=== PATIENT | male | born 1955 | race African-American/Black ===

== ENCOUNTER 2023-12-23 14:01 | Inpatient (IN) | payer MEDICARE, OTHER ==
--- NOTE | 2023-12-23 14:20 | ED ---
General Adult HPI - General Chief complaint: Chest Pain Stated complaint: chest pain Time Seen by Provider: 12/23/23 14:05 Source: patient, EMS, RN notes reviewed, old records reviewed Mode of arrival: EMS - History of Present Illness Initial comments: This is a 68-year-old male with a past medical history significant for coronary artery disease and 3 stent placements, patient also has high blood pressure high cholesterol smokes and states he did cocaine a week ago. Patient comes in today because he has chest pain this morning with shortness of breath. Patient states the chest pain after about 20 minutes to half an hour went away. Patient states currently chest pain-free. Patient denies any diaphoretic episode. Patient denies any nausea. Patient has no complaints at this time. Patient [place] any fever chills or cough. - Related Data Home Medications Medication Instructions Recorded Confirmed Aspirin EC [Ecotrin Low Dose] 81 mg PO DAILY 12/23/23 12/23/23 Budesonide/Glycopyr/Formoterol 2 puff INHALATION RT-BID 12/23/23 12/23/23 [Breztri Aerosphere Inhaler] Clopidogrel [Plavix] 75 mg PO DAILY 12/23/23 12/23/23 Famotidine [Pepcid] 20 mg PO DAILY 12/23/23 12/23/23 Fluticasone Nasal [place] [Flonase 1 spray EA NOSTRIL DAILY 12/23/23 12/23/23 Nasal [place]] Metoprolol Tartrate [Lopressor] 25 mg PO BID 12/23/23 12/23/23 Tamsulosin [Flomax] 0.4 mg PO BID 12/23/23 12/23/23 Allergies Allergy/AdvReac Type Severity Reaction Status Date / Time No Known Allergies Allergy Verified 12/23/23 16:04 Review of Systems ROS Statement: Those systems with pertinent positive or pertinent negative responses have been documented in the HPI. ROS Other: All systems not noted in ROS Statement are negative. Past Medical History Past Medical History: COPD, Myocardial Infarction ([place]) History of Any Multi-Drug Resistant Organisms: None Reported Additional Past Surgical History / Comment(s): cardiac stent x3 Past Psychological History: No Psychological Hx Reported Smoking Status: Current every day smoker Past Alcohol Use History: None Reported Past Drug Use History: Cocaine General Exam - General Exam Comments Initial Comments: GENERAL: Patient is well-developed and well-nourished. Patient is nontoxic and well- hydrated and is in no acute distress. ENT: Neck is soft and supple. No significant lymphadenopathy is noted. Oropharynx is clear. Moist mucous membranes. Neck has full range of motion without eliciting any pain. EYES: The sclera were anicteric and conjunctiva were pink and moist. Extraocular movements were intact and pupils were equal round and reactive to light. Eyelids were unremarkable. PULMONARY: Unlabored respirations. Good breath sounds bilaterally. No audible rales rhonchi or wheezing was noted. CARDIOVASCULAR: There is a regular rate and rhythm without any murmurs gallops or rubs. ABDOMEN: Soft and nontender with normal bowel sounds. SKIN: Skin is clear with no lesions or rashes and otherwise unremarkable. NEUROLOGIC: Patient is alert and oriented x3. Cranial nerves II through XII are grossly intact. Motor and sensory are also intact. Normal speech, volume and content. Symmetrical smile. MUSCULOSKELETAL: Normal extremities with adequate strength and full range of motion. No lower extremity swelling or edema. No calf tenderness. LYMPHATICS: No significant lymphadenopathy is noted PSYCHIATRIC: Normal psychiatric evaluation. Course Vital Signs 12/23/23 14:05 Pulse Rate 88 Respiratory 16 Rate Blood Pressure 131/79 O2 Sat by Pulse 95 Oximetry Medical Decision Making - Medical Decision Making EKG is interpreted by myself but EKG shows a sinus rhythm at 79 bpm parables 150 QRS 154 QT interval is 427 QTc is 462. Patient's EKG shows a right bundle branch block. There is no ST segment elevation. Was pt. sent in by a medical professional or institution (, PA, BINDERY ASSISTANT, urgent care, hospital, or care home...) When possible be specific @ -No Did you speak to anyone other than the patient for history (EMS, parent, family, police, friend...)? What history was obtained from this source @ -No Did you review nursing and triage notes (agree or disagree)? Why? @ -I reviewed and agree with nursing and triage notes Were old charts reviewed (outside hosp., previous admission, EMS record, old EKG, old radiological studies, urgent care reports/EKG's, care home records)? Report findings @ -I reviewed prior admission charts on this patient and his troponin was elev ated compared to his last inpatient troponin. Differential Diagnosis (chest pain, altered mental status, abdominal pain women, abdominal pain men, vaginal bleeding, weakness, fever, dyspnea, syncope, headache, dizziness, GI bleed, back pain, seizure, CVA, palpatations, mental health, musculoskeletal)? @ -Differential Chest Pain: Stable Angina, Unstable Angina, STEMI, NSTEMI Aortic Dissection, Pneumothorax, Musculoskeletal, Esophageal Spasm GERD, Cholecystitis, Pancreatitis, Zoster, this is not meant to be an all-inclusive list. EKG interpreted by me (3pts min.). @ -As above X-rays interpreted by me (1pt min.). @ -None done CT interpreted by me (1pt min.). @ -None done U/S interpreted by me (1pt. min.). @ -None done What testing was considered but not performed or refused? (CT, X-rays, U/S, labs)? Why? @ -None What meds were considered but not given or refused? Why? @ -None Did you discuss the management of the patient with other professionals (professionals i.e. , PA, BINDERY ASSISTANT, lab, RT, psych nurse, social sciences instructor, floatman, teacher, promotions officer, protective services case worker)? Give summary @ -I spoke with [facility] they agreed admit the patient I admitted the patient Was smoking cessation discussed for >3mins.? @ -No Was critical care preformed (if so, how long)? @ -No Were there social determinants of health that impacted care today? How? (Homelessness, low income, unemployed, alcoholism, drug addiction, transportation, low edu. Level, literacy, decrease access to med. care, group home, rehab)? @ -No Was there de-escalation of care discussed even if they declined (Discuss DNR or withdrawal of care, Hospice)? DNR status @ -No What co-morbidities impacted this encounter? (DM, HTN, Smoking, COPD, CAD, Cancer, CVA, ARF, Chemo, Hep., AIDS, mental health diagnosis, sleep apnea, morbid obesity)? @ -None Was patient admitted / discharged? Hospital course, mention meds given and route, prescriptions, significant lab abnormalities, going to OR and other pertinent info. @ -Patient was asymptomatic while lying in bed. Patient's troponin was mildly bumped. [facility] agreed to admit the patient Undiagnosed new problem with uncertain prognosis? @ -No Drug Therapy requiring intensive monitoring for toxicity (Heparin, Nitro, Insulin, Cardizem)? @ -No Were any procedures done? @ -No Diagnosis/symptom? @ -Chest pain Acute, or Chronic, or Acute on Chronic? @ -Acute Uncomplicated (without systemic symptoms) or Complicated (systemic symptoms)? @ -Complicated Side effects of treatment? @ -No Exacerbation, Progression, or Severe Exacerbation? @ -No Poses a threat to life or bodily function? How? (Chest pain, [place], [place], pneumonia, PE, COPD, DKA, ARF, appy, cholecystitis, CVA, Diverticulitis, Homicidal, Suicidal, threat to staff... and all critical care pts) @ -Yes this could be an [place] and lead to endorgan dysfunction - Lab Data Result diagrams: 12/23/23 14:30 12/23/23 15:39 Lab Results 12/23/23 12/23/23 12/23/23 Range/Units 14:30 15:39 15:39 WBC 7.3 (3.8-10.6) k/uL RBC 4.23 L (4.30-5.90) m/uL Hgb 13.0 (13.0-17.5) gm/dL Hct 40.4 (39.0-53.0) % MCV 95.4 (80.0-100.0) fL MCH 30.7 (25.0-35.0) pg MCHC 32.2 (31.0-37.0) g/dL RDW 14.2 (11.5-15.5) % Plt Count 308 (150-450) k/uL MPV 7.8 Neutrophils % 64 % Lymphocytes % 28 % Monocytes % 6 % Eosinophils % 1 % Basophils % 0 % Neutrophils # 4.7 (1.3-7.7) k/uL Lymphocytes # 2.1 (1.0-4.8) k/uL Monocytes # 0.4 (0-1.0) k/uL Eosinophils # 0.1 (0-0.7) k/uL Basophils # 0.0 (0-0.2) k/uL Sodium 136 L (137-145) mmol/L Potassium 4.4 (3.5-5.1) mmol/L Chloride 111 H (98-107) mmol/L Carbon Dioxide 23 (22-30) mmol/L Anion Gap 2 mmol/L BUN 16 (9-20) mg/dL Creatinine 0.83 (0.66-1.25) mg/dL Est GFR (CKD-EPI)AfAm >90 (>60 ml/min/1.73 sqM) Est GFR (CKD-EPI)NonAf >90 (>60 ml/min/1.73 sqM) Glucose 72 L (74-99) mg/dL Calcium 8.9 (8.4-10.2) mg/dL Magnesium 1.8 (1.6-2.3) mg/dL Total Bilirubin 0.5 (0.2-1.3) mg/dL AST 18 (17-59) U/L ALT 11 (4-49) U/L Alkaline Phosphatase 62 (38-126) U/L Troponin I 0.067 H* (0.000-0.034) ng/mL Total Protein 6.4 (6.3-8.2) g/dL Albumin 3.4 L (3.5-5.0) g/dL Disposition Clinical Impression: Chest pain Disposition: ADMITTED IP TO THIS HOSP Referrals: None,Stated [Primary Care Provider] - 1-2 days Time of Disposition: 17:05
[2023-12-23 15:03] LABS: Basophils % (A) 0 %; Eosinophils # (A) 0.1 k/uL (0-0.7); Eosinophils % (A) 1 %; HCT 40.4 % (39.0-53.0); Lymphocytes # (A) 2.1 k/uL (1.0-4.8); Lymphocytes % (A) 28 %; MCH 30.7 pg (25.0-35.0); MCHC 32.2 g/dL (31.0-37.0); MCV 95.4 fL (80.0-100.0); Mean Platelet Volume 7.8; Monocytes # (A) 0.4 k/uL (0-1.0); Monocytes % (A) 6 %; Neutrophils # (A) 4.7 k/uL (1.3-7.7); Neutrophils % (A) 64 %; Platelet Count 308 k/uL (150-450); RBC 4.23 m/uL (4.30-5.90); RDW 14.2 % (11.5-15.5); WBC 7.3 k/uL (3.8-10.6)
[2023-12-23] MEDS: NITROGLYCERIN OINT 1 INCH/GM PACKET TOPICAL STA (15:07)
--- NOTE | 2023-12-23 15:09 | XR ---
EXAMINATION TYPE: XR chest 2V DATE OF EXAM: 12/23/2023 COMPARISON: NONE TECHNIQUE: PA and lateral views submitted. HISTORY: Shortness of breath FINDINGS: The lungs are clear and there is no pneumothorax, pleural effusion, or focal pneumonia. Heart size normal and no overt failure. Osseous structures demonstrate hypertrophic and degenerative changes of the spine. Pulmonary arteries are prominent which may reflect pulmonary arterial hypertension. There is evidence of COPD. Coarsened interstitium. Thickening or tiny amount of fluid in the minor fi ssure. IMPRESSION: 1. COPD correlate for pulmonary arterial hypertension. Coarsened interstitium can be associated with chronic interstitial lung disease. A mild interstitial pneumonitis in the differential diagnosis..
[2023-12-23] MEDS: ASPIRIN 81 MG PO STA (15:13)
[2023-12-23 16:35] LABS: ALT 11 U/L (4-49); African American GFR (CKD) >90 (>60 ml/min/1.73 sqM); Albumin 3.4 g/dL (3.5-5.0); Anion Gap 2 mmol/L; Blood Urea Nitrogen 16 mg/dL (9-20); Calcium 8.9 mg/dL (8.4-10.2); Carbon Dioxide 23 mmol/L (22-30); Chloride 111 mmol/L (98-107); Glucose 72 mg/dL (74-99); Non-African American GFR(CKD) >90 (>60 ml/min/1.73 sqM); Sodium 136 mmol/L (137-145); Total Bilirubin 0.5 mg/dL (0.2-1.3); Total Protein 6.4 g/dL (6.3-8.2)
[2023-12-23 16:51] LABS: AST 18 U/L (17-59); Alkaline Phosphatase 62 U/L (38-126); Magnesium 1.8 mg/dL (1.6-2.3); Potassium 4.4 mmol/L (3.5-5.1)
[2023-12-23] MEDS ORDERED: NITROGLYCERIN SL TABS 0.4 MG TAB SUBLINGUAL PRN (17:10)
[2023-12-23 17:20] LABS: INR 0.9 (<1.2)
[2023-12-23 17:24] LABS: Partial Thromboplastin Time 20.1 sec (22.0-30.0)
[2023-12-23] MEDS: HEPARIN SOD,PORK IN 0.45% NACL 25,000 UNIT in 0.45% NACL 1 250ML.BAG IV SCH (19:36)
[2023-12-23] MEDS: IPRATROPIUM 0.5 MG/2.5 ML NEBU INHALATION PRN (20:33)
[2023-12-23] MEDS: METOPROLOL TARTRATE 25 MG TAB PO SCH (21:16)
[2023-12-23] MEDS: ATORVASTATIN 40 MG TAB PO SCH (21:16)
[2023-12-23] MEDS: NITROGLYCERIN OINT 1 INCH/GM PACKET TOPICAL SCH (21:16)
[2023-12-24] MEDS: traZODone HCL 50 MG TAB PO SCH (02:57)
[2023-12-24] MEDS: HEPARIN SODIUM 1,000 UN/ML (10ML VL) IV PRN (06:11)
[2023-12-24] MEDS: SYMBICORT 160-4.5 MCG INHALER INHALATION SCH (08:15)
[2023-12-24] MEDS: ASPIRIN 325 MG TAB PO SCH (09:14)
[2023-12-24 10:48] LABS: Chol/HDL Ratio 5.62 Ratio; LDL Cholesterol,Calculated 93.3 mg/dL (0.0-131.0)
[2023-12-24] MEDS: CLOPIDOGREL 75 MG TAB PO SCH (11:01)
[2023-12-24] MEDS: ACETAMINOPHEN TAB 500 MG TAB PO PRN (11:01)
[2023-12-24] MEDS: ISOSORBIDE MONONITRATE ER 30 MG TAB.ER.24H PO SCH (12:08)
[2023-12-24] MEDS: DILTIAZEM CD 120 MG CAP.ER.24H PO SCH (12:08)
--- NOTE | 2023-12-24 13:35 | P.HPIM ---
History of Present Illness Patient is a pleasant 68-year-old male with coronary disease and CT scans in the past came in with complaints of chest pain associated shortness of breath and precordial area patient has mild elevated troponin of 0.06 and stable at that level chest pain lasted for half an hour and went away. Patient denies any diaphoresis lightheadedness associate with that. Patient was eval by cardiology patient is presently on IV heparin. EKG showed right bundle branch block and left anterior fascicular block. Patient had some nonspecific ST-T wave changes. Chest x-ray did not show any significant abnormality. Patient has a history of cocaine use but his last cocaine use was 1 and half weeks ago does smoke half a pack of cigarettes a day. REVIEW OF SYSTEMS: CONSTITUTIONAL: No fever, no malaise, no fatigue. HEENT: No recent visual problems or hearing problems. Denied any sore throat. CARDIOVASCULAR: noPND, no palpitations, no syncope. PULMONARY: No shortness of breath, no cough, no hemoptysis. GASTROINTESTINAL: No diarrhea, no nausea, no vomiting, no abdominal pain. NEUROLOGICAL: No headaches, no weakness, no numbness. HEMATOLOGICAL: Denies any bleeding or petechiae. GENITOURINARY: Denies any burning micturition, frequency, or urgency. MUSCULOSKELETAL/RHEUMATOLOGICAL: Denies any joint pain, swelling, or any muscle pain. ENDOCRINE: Denies any polyuria or polydipsia. The rest of the 14-point review of systems is negative. PHYSICAL EXAMINATION: GENERAL: The patient is alert and oriented x3, not in any acute distress. Well developed, well nourished. HEENT: Pupils are round and equally reacting to light. EOMI. No scleral icterus. No conjunctival pallor. Normocephalic, atraumatic. No pharyngeal erythema. No thyromegaly. CARDIOVASCULAR: S1 and S2 present. No murmurs, rubs, or gallops. PULMONARY: Chest is clear to auscultation, no wheezing or crackles. ABDOMEN: Soft, nontender, nondistended, normoactive bowel sounds. No palpable organomegaly. MUSCULOSKELETAL: No joint swelling or deformity. EXTREMITIES: No cyanosis, clubbing, or pedal edema. NEUROLOGICAL: Gross neurological examination did not reveal any focal deficits. SKIN: No rashes. Assessment and plan -Possible non-ST elevation myocardial infarction: Patient will be continued on IV heparin I cannot rule out a type I [place] cardiology evaluated the patient. Patient has not been taking his Plavix which was resumed by cardiology, con sidering his cocaine use patient was started on Cardizem instead of beta- max. -COPD without any acute exacerbation patient was resumed on home regimen -Hypertension patient was resumed on home regimen Hypertension patient blood pressures failure well-controlled at the time -Benign prostatic hypertrophy for which patient was resumed on tamsulosin DVT prophylaxis: Patient is on IV heparin Past Medical History Past Medical History: COPD, Myocardial Infarction ([place]) History of Any Multi-Drug Resistant Organisms: None Reported Additional Past Surgical History / Comment(s): cardiac stent x3 Past Psychological History: No Psychological Hx Reported Smoking Status: Current every day smoker Past Alcohol Use History: None Reported Past Drug Use History: Cocaine Medications and Allergies Home Medications Medication Instructions Recorded Confirmed Type Aspirin EC [Ecotrin Low Dose] 81 mg PO DAILY 12/23/23 12/23/23 History Budesonide/Glycopyr/Formoterol 2 puff INHALATION RT-BID 12/23/23 12/23/23 History [Breztri Aerosphere Inhaler] Clopidogrel [Plavix] 75 mg PO DAILY 12/23/23 12/23/23 History Famotidine [Pepcid] 20 mg PO DAILY 12/23/23 12/23/23 History Fluticasone Nasal [place] [Flonase 1 spray EA NOSTRIL DAILY 12/23/23 12/23/23 History Nasal [place]] Metoprolol Tartrate [Lopressor] 25 mg PO BID 12/23/23 12/23/23 History Tamsulosin [Flomax] 0.4 mg PO BID 12/23/23 12/23/23 History Allergies Allergy/AdvReac Type Severity Reaction Status Date / Time No Known Allergies Allergy Verified 12/23/23 16:04 Physical Exam Vitals: Vital Signs Temp Pulse Resp BP Pulse Ox 12/24/23 13:08 68 18 138/95 95 12/24/23 10:25 70 18 150/90 96 12/24/23 09:00 71 18 163/83 97 12/24/23 08:27 75 12/24/23 08:16 73 12/24/23 07:00 70 18 131/62 96 12/24/23 05:00 73 18 138/66 95 12/24/23 04:00 98.0 F 75 20 138/66 96 12/24/23 03:13 75 16 137/82 96 12/24/23 00:02 75 18 130/65 98 12/23/23 21:12 89 16 140/80 12/23/23 20:44 77 12/23/23 20:36 80 12/23/23 20:03 80 16 130/80 97 12/23/23 19:13 80 16 132/63 95 12/23/23 18:00 97.9 F 12/23/23 17:16 77 16 146/77 98 12/23/23 14:05 88 16 131/79 95 Intake and Output 12/23/23 12/24/23 12/24/23 22:59 06:59 14:59 Intake Total 81.343 66.975 Balance 81.343 66.975 Intake: Intake, IV Titration 81.343 66.975 Amount Heparin Sod,Pork in 0.45% 81.343 66.975 NaCl 25,000 unit In 0.45 % NaCl 1 250ml.bag @ 12 UNITS/KG/HR 7.784 mls/hr IV .Q24H [facility] Rx#: [id number] Results CBC & Chem 7: 12/23/23 14:30 12/23/23 15:39 Labs: Abnormal Lab Results - Last 24 Hours (Table) 12/23/23 12/23/23 12/23/23 Range/Units 14:30 15:39 15:39 RBC 4.23 L (4.30-5.90) m/uL APTT (22.0-30.0) sec Sodium 136 L (137-145) mmol/L Chloride 111 H (98-107) mmol/L Glucose 72 L (74-99) mg/dL Troponin I 0.067 H* (0.000-0.034) ng/mL Albumin 3.4 L (3.5-5.0) g/dL Triglycerides (0.00-149.00) mg/dL VLDL Cholesterol, Calc (5.00-40.00) mg/dL HDL Cholesterol (40.00-60.00) mg/dL 12/23/23 12/23/23 12/23/23 Range/Units 15:39 16:42 18:05 RBC (4.30-5.90) m/uL APTT 20.1 L (22.0-30.0) sec Sodium (137-145) mmol/L Chloride (98-107) mmol/L Glucose (74-99) mg/dL Troponin I 0.071 H* (0.000-0.034) ng/mL Albumin (3.5-5.0) g/dL Triglycerides 298.00 H (0.00-149.00) mg/dL VLDL Cholesterol, Calc 59.60 H (5.00-40.00) mg/dL HDL Cholesterol 33.10 L (40.00-60.00) mg/dL 12/23/23 12/24/23 Range/Units 21:14 12:49 RBC (4.30-5.90) m/uL APTT 47.8 H (22.0-30.0) sec Sodium (137-145) mmol/L Chloride (98-107) mmol/L Glucose (74-99) mg/dL Troponin I 0.078 H* (0.000-0.034) ng/mL Albumin (3.5-5.0) g/dL Triglycerides (0.00-149.00) mg/dL VLDL Cholesterol, Calc (5.00-40.00) mg/dL HDL Cholesterol (40.00-60.00) mg/dL
[2023-12-24] MEDS: FLUTICASONE 50MCG/SPRAY NASAL 16GM EA NOSTRIL SCH (16:05)
--- NOTE | 2023-12-24 16:52 | P.CRDCN ---
History of Present Illness Consult date: 12/24/23 History of present illness: HISTORY OF PRESENTING ILLNESS 68-year-old male with past medical history of CAD s/p recent PCI in October [address] Pillai at [facility] for NSTEMI. This time he presented to the hospital because of substernal chest pressure-like sensation which has been going on for last 2 to 3 days and has got worse recently. The symptoms are very similar to what he had in October 2023 for which she had a heart catheterization done. Patient reports that he took aspirin and Plavix for 1 month after the procedure and then he stopped taking his medications. Patient also uses cocaine. He reports that his last use of cocaine was 1 week ago. He also smokes approximately half pack per day. He uses marijuana and occasional alcohol use. Neuro sinus rhythm heart rate 74, right bundle branch block with nonspecific ST changes REVIEW OF SYSTEMS Chest pain chest pressure. 14 point review system otherwise negative except what is mentioned above in HPI PHYSICAL EXAMINATION Head: Normocephalic. Eyes: Sclerae nonicteric. Neck: Brisk carotid upstroke, no jugular venous distention. Lungs: Clear to auscultation. Heart: Regular rate and rhythm, S1-S2, no S3, no murmur or rub. Abdomen: Soft nontender, positive bowel sounds. Extremities: No edema, intact distal pulses. Neuro: Alert, oritented, no focal deficits. Detailed neuro exam was not performed. ASSESSMENT Elevated troponin, likely NSTEMI CAD s/p PCI October [address] Bryce Dohertyomb. Patient stopped taking DAPT after 1 month. Right bundle branch block Cocaine abuse Tobacco smoking Marijuana use Medication noncompliance PLAN Patient troponins are elevated at 0.068, 0.071, 0.078. They are elevated but have consistently flat pattern. Patient does report recent cocaine abuse. This elevation of troponin can fairly be related to it. He is also noncompliant to his dual antiplatelet therapy. Continue aspirin, start Plavix Continue IV heparin drip for 48 hours Stop metoprolol do not resume on discharge. Start Cardizem 120 mg CD daily. This is done because patient does have a tendency of using cocaine. Beta- max is contraindicated Start lisinopril 2.5 mg daily Start Imdur 30 mg daily Request medical records from [facility]. Keep patient n.p.o. after midnight Plan for heart catheterization tomorrow Wallace Lisa MD, FACC, RPVI Thank you for allowing [facility] to participate in this patient's care. Feel free to reach out in case of any followup questions. Past Medical History Past Medical History: COPD, Myocardial Infarction ([place]) History of Any Multi-Drug Resistant Organisms: None Reported Additional Past Surgical History / Comment(s): cardiac stent x3 Past Psychological History: No Psychological Hx Reported Smoking Status: Current every day smoker Past Alcohol Use History: None Reported Past Drug Use History: Cocaine Medications and Allergies Home Medications Medication Instructions Recorded Confirmed Type Aspirin EC [Ecotrin Low Dose] 81 mg PO DAILY 12/23/23 12/23/23 History Budesonide/Glycopyr/Formoterol 2 puff INHALATION RT-BID 12/23/23 12/23/23 History [Breztri Aerosphere Inhaler] Clopidogrel [Plavix] 75 mg PO DAILY 12/23/23 12/23/23 History Famotidine [Pepcid] 20 mg PO DAILY 12/23/23 12/23/23 History Fluticasone Nasal [place] [Flonase 1 spray EA NOSTRIL DAILY 12/23/23 12/23/23 History Nasal [place]] Metoprolol Tartrate [Lopressor] 25 mg PO BID 12/23/23 12/23/23 History Tamsulosin [Flomax] 0.4 mg PO BID 12/23/23 12/23/23 History Allergies Allergy/AdvReac Type Severity Reaction Status Date / Time No Known Allergies Allergy Verified 12/23/23 16:04 Physical Exam Vitals: Vital Signs Temp Pulse Resp BP Pulse Ox 12/24/23 13:08 68 18 138/95 95 12/24/23 10:25 70 18 150/90 96 12/24/23 09:00 71 18 163/83 97 12/24/23 08:27 75 12/24/23 08:16 73 12/24/23 07:00 70 18 131/62 96 12/24/23 05:00 73 18 138/66 95 12/24/23 04:00 98.0 F 75 20 138/66 96 12/24/23 03:13 75 16 137/82 96 12/24/23 00:02 75 18 130/65 98 12/23/23 21:12 89 16 140/80 12/23/23 20:44 77 12/23/23 20:36 80 12/23/23 20:03 80 16 130/80 97 12/23/23 19:13 80 16 132/63 95 12/23/23 18:00 97.9 F 12/23/23 17:16 77 16 146/77 98 Intake and Output 12/24/23 12/24/23 12/24/23 06:59 14:59 22:59 Intake Total 81.343 66.975 Balance 81.343 66.975 Intake: Intake, IV Titration 81.343 66.975 Amount Heparin Sod,Pork in 0.45% 81.343 66.975 NaCl 25,000 unit In 0.45 % NaCl 1 250ml.bag @ 12 UNITS/KG/HR 7.784 mls/hr IV .Q24H [facility] Rx#: [id number] Results 12/23/23 14:30 12/23/23 15:39 Cardiac Enzymes 12/23/23 12/23/23 12/23/23 Range/Units 15:39 15:39 18:05 AST 18 (17-59) U/L Troponin I 0.067 H* 0.071 H* (0.000-0.034) ng/mL 12/23/23 Range/Units 21:14 AST (17-59) U/L Troponin I 0.078 H* (0.000-0.034) ng/mL Coagulation 12/23/23 12/24/23 12/24/23 Range/Units 16:42 02:50 12:49 PT 10.0 (10.0-12.5) sec APTT 20.1 L 28.0 47.8 H (22.0-30.0) sec Lipids 12/23/23 Range/Units 15:39 Triglycerides 298.00 H (0.00-149.00) mg/dL Cholesterol 186.00 (0.00-200.00) mg/dL HDL Cholesterol 33.10 L (40.00-60.00) mg/dL Cholesterol/HDL Ratio 5.62 Ratio Comprehensive Metabolic Panel 12/23/23 Range/Units 15:39 Sodium 136 L (137-145) mmol/L Potassium 4.4 (3.5-5.1) mmol/L Chloride 111 H (98-107) mmol/L Carbon Dioxide 23 (22-30) mmol/L BUN 16 (9-20) mg/dL Creatinine 0.83 (0.66-1.25) mg/dL Glucose 72 L (74-99) mg/dL Calcium 8.9 (8.4-10.2) mg/dL AST 18 (17-59) U/L ALT 11 (4-49) U/L Alkaline Phosphatase 62 (38-126) U/L Total Protein 6.4 (6.3-8.2) g/dL Albumin 3.4 L (3.5-5.0) g/dL Current Medications Generic Name Dose Route Start Last Admin Trade Name Freq PRN Reason Stop Dose Admin Acetaminophen 500 mg 12/24/23 10:39 12/24/23 11:01 Acetaminophen Tab 500 Mg Tab PO 500 mg Q6HR PRN Administration Fever and/ or Pain Aspirin 81 mg 12/25/23 09:00 Aspirin 81 Mg PO DAILY [facility] Atorvastatin Calcium 40 mg 12/23/23 21:00 12/23/23 21:16 Atorvastatin 40 Mg Tab PO 40 mg HS [facility] Administration Budesonide/Formoterol Fumarate 2 puff 12/24/23 08:00 12/24/23 08:15 Symbicort 160-4.5 Mcg Inhaler INHALATION 2 puff RT-BID [facility] Administration Clopidogrel Bisulfate 75 mg 12/24/23 11:00 12/24/23 11:01 Clopidogrel 75 Mg Tab PO 75 mg DAILY [facility] Administration Diltiazem HCl 120 mg 12/24/23 10:45 12/24/23 12:08 Diltiazem Cd 120 Mg Cap.Er.24h PO 120 mg DAILY [facility] Administration Famotidine 20 mg 12/25/23 09:00 Famotidine 20 Mg Tab PO DAILY [facility] Fluticasone Propionate 1 spray 12/24/23 13:30 12/24/23 16:05 Fluticasone 50mcg/[place] Nasal 16gm EA NOSTRIL 1 spray DAILY [facility] Administration Heparin Sodium (Porcine) 0 unit 12/24/23 06:06 12/24/23 13:01 Heparin Sodium 1,000 Un/Ml (10ml Vl) IV 3,200 unit Q6HR PRN Administration Low PTT Protocol Heparin Sodium/Sodium Chloride 250 mls @ 7.784 mls/hr 12/23/23 19:30 12/24/23 12:56 25,000 unit/ Sodium Chloride IV 18 units/kg/hr .Q24H [facility] 11.676 mls/hr Titration Protocol 12 UNITS/KG/HR Ipratropium [place] 0.5 mg 12/23/23 20:24 12/24/23 08:15 Ipratropium 0.5 Mg/2.5 Ml Nebu INHALATION 0.5 mg RT-QID PRN Administration Shortness Of Breath Or Wheezing Ipratropium [place] 0.5 mg 12/24/23 20:00 Ipratropium 0.5 Mg/2.5 Ml Nebu INHALATION RT-QID [facility] Isosorbide Mononitrate 30 mg 12/24/23 10:45 12/24/23 12:08 Isosorbide Mononitrate Er 30 Mg Tab.Er.24h PO 30 mg DAILY [facility] Administration Lisinopril 2.5 mg 12/24/23 10:45 12/24/23 12:08 Lisinopril 2.5 Mg Tab PO 2.5 mg DAILY [facility] Administration Nitroglycerin 0.4 mg 12/23/23 17:10 Nitroglycerin Sl Tabs 0.4 Mg Tab SUBLINGUAL Q5M PRN Chest Pain Nitroglycerin 1 inch 12/23/23 21:00 12/24/23 16:06 Nitroglycerin Oint 1 Inch/Gm Packet TOPICAL Not Given Q6H [facility] Tamsulosin HCl 0.4 mg 12/24/23 21:00 Tamsulosin 0.4 Mg Cap.Er.24h PO BID [facility] Trazodone HCl 50 mg 12/24/23 00:30 12/24/23 02:57 Trazodone Hcl 50 Mg Tab PO 50 mg HS [facility] Administration Intake and Output 12/24/23 12/24/23 12/24/23 06:59 14:59 22:59 Intake Total 81.343 66.975 Balance 81.343 66.975 Intake: Intake, IV Titration 81.343 66.975 Amount Heparin Sod,Pork in 0.45% 81.343 66.975 NaCl 25,000 unit In 0.45 % NaCl 1 250ml.bag @ 12 UNITS/KG/HR 7.784 mls/hr IV .Q24H [facility] Rx#: [id number] 12/23/23 14:30 12/23/23 15:39
[2023-12-24] MEDS ORDERED: ALPRAZolam 0.25 MG TAB PO PRN (16:55)
[2023-12-24 17:21] LABS: Glucose,Whole Blood 101 mg/dL (70-110)
[2023-12-24] MEDS: TAMSULOSIN 0.4 MG CAP.ER.24H PO SCH (20:12)
[2023-12-24] MEDS: HYDROcodone/APAP 5-325MG 1 EACH TAB PO PRN (20:12)
[2023-12-24] MEDS: SODIUM CHLORIDE 0.9% 1,000 ML in EMPTY BAG 1 BAG IV SCH (20:22)
[2023-12-24] MEDS: IPRATROPIUM 0.5 MG/2.5 ML NEBU INHALATION SCH (22:22)
[2023-12-24] MEDS: SODIUM CHLORIDE 0.65% NASAL SPRAY 44 ML BTL NASAL PRN (22:52)
[2023-12-25] MEDS ORDERED: HEPARIN SODIUM,PORCINE (1 ML) 2,500 UNIT in SODIUM CHLORIDE 0.9% 250 ML IRRIGATION PRN (07:00)
[2023-12-25] MEDS ORDERED: HEPARIN SODIUM,PORCINE 10,000 UNIT in SODIUM CHLORIDE 0.9% 1,000 ML IRRIGATION PRN (07:00)
[2023-12-25] MEDS: FAMOTIDINE 20 MG TAB PO SCH (08:02)
[2023-12-25] MEDS: ASPIRIN 81 MG PO SCH (08:02)
--- NOTE | 2023-12-25 10:10 | P.PN ---
Subjective Progress Note Date: 12/25/23 Progress note 12/25/2023 Patient was seen and examined at bedside this a.m. He was scheduled for heart catheterization today for his NSTEMI but patient denied getting his heart catheterization done. He reports that he would rather go to his primary chute tapper Dr. Wu and get it done at [facility]. We requested records from [facility] which showed that he has had a prior PCI in August 2021 in [place]. In 2022 he had a stent to his LAD. October 2023 he was found to have in-stent stenosis of his [place] stent and got PCI for the same. Postintervention patient left the hospital AGAINST MEDICAL ADVICE. Patient also reports that he stopped taking his cardiac medications after 1 month of his PCI. HISTORY OF PRESENTING ILLNESS 68-year-old male with past medical history of CAD s/p recent PCI in October [address] Pillai at [facility] for NSTEMI. This time he presented to the hospital because of substernal chest pressure-like sensation which has been going on for last 2 to 3 days and has got worse recently. The symptoms are very similar to what he had in October 2023 for which she had a heart catheterization done. Patient reports that he took aspirin and Plavix for 1 month after the procedure and then he stopped taking his medications. Patient also uses cocaine. He reports that his last use of cocaine was 1 week ago. He also smokes approximately half pack per day. He uses marijuana and occasional alcohol use. Neuro sinus rhythm heart rate 74, right bundle branch block with nonspecific ST changes REVIEW OF SYSTEMS Chest pain chest pressure. 14 point review system otherwise negative except what is mentioned above in HPI PHYSICAL EXAMINATION Head: Normocephalic. Eyes: Sclerae nonicteric. Neck: Brisk carotid upstroke, no jugular venous distention. Lungs: Clear to auscultation. Heart: Regular rate and rhythm, S1-S2, no S3, no murmur or rub. Abdomen: Soft nontender, positive bowel sounds. Extremities: No edema, intact distal pulses. Neuro: Alert, oritented, no focal deficits. Detailed neuro exam was not performed. ASSESSMENT Elevated troponin, likely NSTEMI CAD s/p PCI October [address] Wu [facility]. Patient stopped taking DAPT after 1 month. Right bundle branch block Cocaine abuse Tobacco smoking Marijuana use Medication noncompliance PLAN Patient troponins are elevated at 0.068, 0.071, 0.078. They are elevated but have consistently flat pattern. Patient does report recent cocaine abuse. For his NSTEMI we recommended proceeding with heart catheterization after reviewing his past cardiac cath reports. Patient denied going for heart catheterization and reported that he would rather go to his primary chute tapper Dr. Wu to get the heart cath procedure done. He understands the risk factors for cardiac morbidity and mortality if he denies cardiac catheterization. Will treat him with 48 hours of IV heparin and dual antiplatelet therapy for medical management of his NSTEMI. At this time he is chest pain-free with current antianginal regimen. Continue aspirin, start Plavix Continue IV heparin drip for 48 hours. He will complete it tomorrow morning. Stop metoprolol do not resume on discharge. Start Cardizem 120 mg CD daily. This is done because patient does have a tendency of using cocaine. Beta- max is contraindicated Start lisinopril 2.5 mg daily Start Imdur 30 mg daily Patient is tolerating this med regimen well with no reported chest pain. Recommended to be compliant to his cardiac medications which she reports understanding. Discharge tomorrow a.m. Recommended close follow-up with Dr. Wu post discharge. Objective - Vital Signs Vital signs: Vital Signs Temp 97.5 F L 12/25/23 07:49 Pulse 68 12/25/23 08:15 Resp 18 12/25/23 07:49 BP 152/72 12/25/23 07:49 Pulse Ox 96 12/25/23 07:49 FiO2 Intake & Output 12/24/23 12/25/23 12/25/23 18:59 06:59 18:59 Intake Total 66.975 86.597 250 Output Total 500 Balance 66.975 -413.403 250 Weight 64 kg Intake: IV 10 Invasive Line 1 10 Intake, IV Titration 66.975 86.597 Amount Heparin Sod,Pork in 0.45% 66.975 86.597 NaCl 25,000 unit In 0.45 % NaCl 1 250ml.bag @ 12 UNITS/KG/HR 7.784 mls/hr IV .Q24H [facility] Rx#: [id number] Oral 240 Output: Urine 500 Other: Voiding Method Urinal # Voids 1 - Labs CBC & Chem 7: 12/23/23 14:30 12/23/23 15:39 Labs: Abnormal Lab Results - Last 24 Hours (Table) 12/23/23 12/24/23 Range/Units 15:39 12:49 APTT 47.8 H (22.0-30.0) sec Triglycerides 298.00 H (0.00-149.00) mg/dL VLDL Cholesterol, Calc 59.60 H (5.00-40.00) mg/dL HDL Cholesterol 33.10 L (40.00-60.00) mg/dL
[2023-12-25 10:45] LABS: African American GFR (CKD) 88 (>60 ml/min/1.73 sqM); Anion Gap 3 mmol/L; Blood Urea Nitrogen 19 mg/dL (9-20); Calcium 8.3 mg/dL (8.4-10.2); Carbon Dioxide 23 mmol/L (22-30); Chloride 111 mmol/L (98-107); Glucose 78 mg/dL (74-99); Magnesium 1.8 mg/dL (1.6-2.3); Non-African American GFR(CKD) 77 (>60 ml/min/1.73 sqM); Potassium 4.3 mmol/L (3.5-5.1); Sodium 137 mmol/L (137-145)
[2023-12-25] MEDS: LORATADINE 10 MG TAB PO SCH (11:36)
[2023-12-25] MEDS: IBUPROFEN 600 MG TAB PO STA (18:33)
[2023-12-25] MEDS: PANTOPRAZOLE SODIUM 40 MG GRANULE PKT PO STA (18:38)
--- NOTE | 2023-12-25 21:02 | P.PN ---
Subjective Progress Note Date: 12/25/23 Patient is a pleasant 68-year-old male with coronary disease and CT scans in the past came in with complaints of chest pain associated shortness of breath and precordial area patient has mild elevated troponin of 0.06 and stable at that level chest pain lasted for half an hour and went away. Patient denies any diaphoresis lightheadedness associate with that. Patient was eval by cardiology patient is presently on IV heparin. EKG showed right bundle branch block and left anterior fascicular block. Patient had some nonspecific ST-T wave changes. Chest x-ray did not show any significant abnormality. Patient has a history of cocaine use but his last cocaine use was 1 and half weeks ago does smoke half a pack of cigarettes a day. 12/25/2023 Patient is evaluated today in follow up on the step down unit. Patient refusing the cardiac catheterization would like to follow up with his usual bowling ball marker. He continues on IV heparin. Continues on cardizem and off metoprolol. Blood pressure 147/66. Review of Systems Constitutional: Denied any fatigue denied any fever. Cardio vascular: denied any chest pain, palpitations Gastrointestinal: denied any nausea, vomiting, diarrhea Pulmonary: Denied any shortness of breath cough Neurologic denied any new focal deficits All inpatient medications were reviewed and appropriate changes in these medications as dictated in the interval history and assessment and plan. The impression and plan of care has been dictated by Lazara Peacock Nurse Pract itioner as directed. PHYSICAL EXAMINATION: GENERAL: The patient is alert and oriented x3, not in any acute distress. Well developed, well nourished. HEENT: Pupils are round and equally reacting to light. EOMI. No scleral icterus. No conjunctival pallor. Normocephalic, atraumatic. No pharyngeal erythema. No thyromegaly. CARDIOVASCULAR: S1 and S2 present. No murmurs, rubs, or gallops. PULMONARY: Chest is clear to auscultation, no wheezing or crackles. ABDOMEN: Soft, nontender, nondistended, normoactive bowel sounds. No palpable organomegaly. MUSCULOSKELETAL: No joint swelling or deformity. EXTREMITIES: No cyanosis, clubbing, or pedal edema. NEUROLOGICAL: Gross neurological examination did not reveal any focal deficits. SKIN: No rashes. Assessment and plan -Non ST elevation AK patient will continue on IV heparin overnight. Considering his cocaine use patient was started on Cardizem instead of beta-max. -COPD without any acute exacerbation patient was resumed on home regimen -Hypertension patient was resumed on home regimen -Benign prostatic hypertrophy for which patient was resumed on tamsulosin DVT prophylaxis: Patient is on IV heparin GI prophylaxis Patient will discharge home tomorrow. Continue cardiac telemetry overnight. The impression and plan of care has been dictated by Lazara Peacock, Nurse Practitioner as directed. Dr. Amanda MD I have performed a history and physical examination and medical decision making of this patient, discussed the same with the dictator, and agree with the dictators assessment and plan as written, documented as a scribe. Based on total visit time, I have performed more than 50% of this visit. Objective - Vital Signs Vital signs: Vital Signs Temp 97.6 F 12/25/23 11:26 Pulse 68 12/25/23 11:26 Resp 18 12/25/23 11:26 BP 124/61 12/25/23 11:26 Pulse Ox 100 12/25/23 11:26 FiO2 Intake & Output 12/24/23 12/25/23 12/25/23 18:59 06:59 18:59 Intake Total 66.975 86.597 657.94 Output Total 500 400 Balance 66.975 -413.403 257.94 Weight 64 kg Intake: IV 10 Invasive Line 1 10 Intake, IV Titration 66.975 86.597 167.94 Amount Heparin Sod,Pork in 0.45% 66.975 86.597 167.94 NaCl 25,000 unit In 0.45 % NaCl 1 250ml.bag @ 12 UNITS/KG/HR 7.784 mls/hr IV .Q24H [facility] Rx#: [id number] Oral 480 Output: Urine 500 400 Other: Voiding Method Urinal Urinal # Voids 1 - Labs CBC & Chem 7: 12/23/23 14:30 12/25/23 08:47 Labs: Abnormal Lab Results - Last 24 Hours (Table) 12/25/23 12/25/23 Range/Units 08:47 08:47 APTT 62.8 H (22.0-30.0) sec Chloride 111 H (98-107) mmol/L Calcium 8.3 L (8.4-10.2) mg/dL Assessment and Plan Time with Patient: Less than 30
[2023-12-26 11:38] VITALS: BP 146/64; RESP 16; TEMP 97.5
[2023-12-26 13:27] VITALS: PULSE 71
--- NOTE | 2023-12-26 15:53 | P.PN ---
Subjective Progress Note Date: 12/26/23 Progress note 12/25/2023 Patient was seen and examined at bedside this a.m. He was scheduled for heart catheterization today for his NSTEMI but patient denied getting his heart catheterization done. He reports that he would rather go to his primary inbound sales manager Dr. Wu and get it done at [facility]. We requested records from [facility] which showed that he has had a prior PCI in August 2021 in [place]. In 2022 he had a stent to his LAD. October 2023 he was found to have in-stent stenosis of his [place] stent and got PCI for the same. Postintervention patient left the hospital AGAINST MEDICAL ADVICE. Patient also reports that he stopped taking his cardiac medications after 1 month of his PCI. Patient is doing well from cardiovascular standpoint. He has on and off left- sided chest pain which is very atypical for his coronary artery disease. His substernal chest pressure he was describing before has resolved on current regimen of antianginals. He is hemodynamic stable with good blood pressure control. Patient completed 48 hours of IV heparin therapy without any concerns of bleeding. HISTORY OF PRESENTING ILLNESS 68-year-old male with past medical history of CAD s/p recent PCI in October [address] Pillai at [facility] for NSTEMI. This time he presented to the hospital because of substernal chest pressure-like sensation which has been going on for last 2 to 3 days and has got worse recently. The symptoms are very similar to what he had in October 2023 for which she had a heart catheterization done. Patient reports that he took aspirin and Plavix for 1 month after the procedure and then he stopped taking his medications. Patient also uses cocaine. He reports that his last use of cocaine was 1 week ago. He also smokes approximately half pack per day. He uses marijuana and occasional alcohol use. Neuro sinus rhythm heart rate 74, right bundle branch block with nonspecific ST changes REVIEW OF SYSTEMS Chest pain chest pressure. 14 point review system otherwise negative except what is mentioned above in HPI PHYSICAL EXAMINATION Head: Normocephalic. Eyes: Sclerae nonicteric. Neck: Brisk carotid upstroke, no jugular venous distention. Lungs: Clear to auscultation. Heart: Regular rate and rhythm, S1-S2, no S3, no murmur or rub. Abdomen: Soft nontender, positive bowel sounds. Extremities: No edema, intact distal pulses. Neuro: Alert, oritented, no focal deficits. Detailed neuro exam was not performed. ASSESSMENT Elevated troponin, likely NSTEMI CAD s/p PCI October [address] Bryce Colin. Patient stopped taking DAPT after 1 month. Right bundle branch block Cocaine abuse Tobacco smoking Marijuana use Medication noncompliance PLAN Patient troponins are elevated at 0.068, 0.071, 0.078. They are elevated but have consistently flat pattern. Patient does report recent cocaine abuse. For his NSTEMI we recommended proceeding with heart catheterization after reviewing his past cardiac cath reports. Patient denied going for heart catheterization and reported that he would rather go to his primary inbound sales manager Dr. Wu to get the heart cath procedure done. He understands the risk factors for cardiac morbidity and mortality if he denies cardiac catheterization. Continue aspirin, start Plavix Stop metoprolol do not resume on discharge. Start Cardizem 120 mg CD daily. This is done because patient does have a tendency of using cocaine. Beta- max is contraindicated Start lisinopril 2.5 mg daily Start Imdur 30 mg daily Patient completed 48 hours IV heparin Patient is cleared to be discharged from cardiovascular standpoint Recommended to be compliant to his cardiac medications which she reports understanding. Recommended close follow-up with Dr. Wu post discharge. Objective - Vital Signs Vital signs: Vital Signs Temp 97.5 F L 12/26/23 11:33 Pulse 71 12/26/23 13:26 Resp 16 12/26/23 11:33 BP 146/64 12/26/23 11:33 Pulse Ox 98 12/26/23 11:33 FiO2 Intake & Output 12/25/23 12/26/23 12/26/23 18:59 06:59 18:59 Intake Total 972.00 20 352 Output Total 400 Balance 572.00 20 352 Weight 64 kg Intake: IV 20 20 20 Invasive Line 1 10 Invasive Line 2 10 20 20 Intake, IV Titration 250.00 Amount Heparin Sod,Pork in 0.45% 250.00 NaCl 25,000 unit In 0.45 % NaCl 1 250ml.bag @ 12 UNITS/KG/HR 7.784 mls/hr IV .Q24H [facility] Rx#: [id number] Oral 702 332 Output: Urine 400 Other: Voiding Method Urinal Urinal Urinal # Voids 1 2 - Labs CBC & Chem 7: 12/23/23 14:30 12/25/23 08:47 Labs: Abnormal Lab Results - Last 24 Hours (Table) 12/26/23 Range/Units 09:46 APTT 59.0 H (22.0-30.0) sec
--- NOTE | 2023-12-28 22:58 | P.DS ---
Providers Date of admission: 12/23/23 17:11 Attending physician: Brenda Valencia Consults: 12/23/23 17:10 Consult Physician Urgent Consulting Provider: [facility] Consult Reason/Comments: Chest pain Do you want consulting provider notified?: Yes Primary care physician: Stated None Hospital Course: Final Diagnosis -Non ST elevation DC -COPD without any acute exacerbation patient was resumed on home regimen -Hypertension patient was resumed on home regimen -Benign prostatic hypertrophy for which patient was resumed on tamsulosin -Cocaine use Discharge Disposition Patient is stable for discharge home. He has been taken off metoprolol and started on cardizem due to the risks associated with metoprolol and cocaine use. Patient has been discharged on dual antiplatelet therapy. Patient will need to see his inspector on discharge. Hospital Course Patient is a pleasant 68-year-old male with coronary artery disease and stenting in the past came in with complaints of chest pain associated shortness of breath and precordial area patient has mild elevated troponin of 0.06. [facility] He is not having any shortness of breath. The chest pain is on the left side with no radiation and pressure like sensation has been coming and going. Patient denies any diaphoresis lightheadedness associate with that. Patient was evaluated by cardiology patient is presently on IV heparin. EKG showed right bundle branch block and left anterior fascicular block. Patient had some nonspecific ST-T wave changes. Chest x-ray did not show any significant abnormality. Patient has a history of cocaine use but his last cocaine use was 1 and half weeks ago does smoke half a pack of cigarettes a day. Records from [facility] which showed that he has had a prior PCI in August 2021 in [place]. In 2022 he had a stent to his LAD. October 2023 he was found to have in-stent stenosis of his [place] stent and got PCI for the same. Patient left the hospital against medical advice in October. Patient has been noncompliant with his antiplatelet therapy and states he has known. Patient is doing well from cardiovascular standpoint. He has on and off left-sided chest pain which is very atypical for his coronary artery disease. His substernal chest pressure he was describing before has resolved on current regimen of antianginals. He is hemodynamic stable with good blood pressure control. Patient completed 48 hours of IV heparin therapy without any concerns of bleeding. Patient was offered cardiac catheterization this hospital stay but has declined and wishes to follow up with his known inspector Dr. Kim and we will discharge the patient home. He is currently not having any chest pain, no shortness of breath. No nausea vomiting or diarrhea. His lungs are clear S1 S2 auscultated, abdomen is soft and nontender. He is alert x3. Hemodynamically stable. Please see medication reconciliation for a list of current medications. Thank you for allowing us to participate in the care of this patient. The impression and plan of care has been dictated by Lazara Peacock, Nurse Practitioner as directed. Dr. Amanda MD I have performed a history and physical examination and medical decision making of this patient, discussed the same with the dictator, and agree with the dictators assessment and plan as written, documented as a scribe. Based on total visit time, I have performed more than 50% of this visit. Patient Condition at Discharge: Stable Plan - Discharge Summary Discharge Rx Participant: No New Discharge Prescriptions: New Aspirin 81 mg PO DAILY #30 tab Isosorbide Mononitrate ER [Imdur] 30 mg PO DAILY #30 tab Diltiazem Cd [Cardizem CD] 120 mg PO DAILY #30 cap Atorvastatin [Lipitor] 40 mg PO HS #30 tab lisinopriL [Zestril] 2.5 mg PO DAILY #30 tab Continue Tamsulosin [Flomax] 0.4 mg PO BID Fluticasone Nasal [place] [Flonase Nasal [place]] 1 spray EA NOSTRIL DAILY Clopidogrel [Plavix] 75 mg PO DAILY #30 tab Famotidine [Pepcid] 20 mg PO DAILY Budesonide/Glycopyr/Formoterol [Breztri Aerosphere Inhaler] 2 puff INHALATION RT-BID Discontinued Metoprolol Tartrate [Lopressor] 25 mg PO BID Aspirin EC [Ecotrin Low Dose] 81 mg PO DAILY Discharge Medication List Budesonide/Glycopyr/Formoterol [Breztri Aerosphere Inhaler] 2 puff INHALATION RT-BID 12/23/23 [History] Famotidine [Pepcid] 20 mg PO DAILY 12/23/23 [History] Fluticasone Nasal [place] [Flonase Nasal [place]] 1 spray EA NOSTRIL DAILY 12/23/23 [History] Tamsulosin [Flomax] 0.4 mg PO BID 12/23/23 [History] Aspirin 81 mg PO DAILY #30 tab 12/26/23 [Rx] Atorvastatin [Lipitor] 40 mg PO HS #30 tab 12/26/23 [Rx] Clopidogrel [Plavix] 75 mg PO DAILY #30 tab 12/26/23 [Rx] Diltiazem Cd [Cardizem CD] 120 mg PO DAILY #30 cap 12/26/23 [Rx] Isosorbide Mononitrate ER [Imdur] 30 mg PO DAILY #30 tab 12/26/23 [Rx] lisinopriL [Zestril] 2.5 mg PO DAILY #30 tab 12/26/23 [Rx] Follow up Appointment(s)/Referral(s): MARIA GUADALUPE BOYD DO [REFERRING] - 1 Week (please call and make follow-up ) Patient Instructions/Handouts: Heart Attack (DC), Chest Pain (DC) Discharge Disposition: HOME SELF-CARE
== END 2023-12-26 15:36 | disposition home or self-care (01) | DRG 281 ==
LOC: EC 14:01 → OBSVTOIN 17:11 → 3SCARD 17:11
PROVIDERS: ADMIT Hospitalist; ATTEND Hospitalist
DX: I21.4 Non-ST elevation (NSTEMI) myocardial infarction (principal); I45.2 Bifascicular block; E78.00 Pure hypercholesterolemia, unspecified; J44.9 Chronic obstructive pulmonary disease, unspecified; I10 Essential (primary) hypertension; F14.10 Cocaine abuse, uncomplicated; I25.10 Atherosclerotic heart disease of native coronary artery without angina pectoris; T39.016A Underdosing of aspirin, initial encounter; T45.526A Underdosing of antithrombotic drugs, initial encounter; Z91.128 Patient's intentional underdosing of medication regimen for other reason; N40.0 Benign prostatic hyperplasia without lower urinary tract symptoms; I25.2 Old myocardial infarction; F17.210 Nicotine dependence, cigarettes, uncomplicated; Z71.6 Tobacco abuse counseling; Z79.02 Long term (current) use of antithrombotics/antiplatelets; Z79.82 Long term (current) use of aspirin; Z79.899 Other long term (current) drug therapy; Z95.5 Presence of coronary angioplasty implant and graft
CPT/HCPCS: 36415; 71046; 80048; 80053; 80061; 83735; 84484; 85025; 85610; 85730; 93005; 94640; 96365; 96366; 99285